=== PATIENT | female | born 1990 | race Caucasian/White ===

== ENCOUNTER 2018-09-04 02:11 | Day surgery (SDC) | payer OTHER ==
[2018-09-04] MEDS ORDERED: hydrOXYzine 25 MG/ML VIAL IM PRN (02:29)
[2018-09-04] MEDS ORDERED: diphenhydrAMINE 50 MG/ML VIAL IVP SCH (02:30)
[2018-09-04 02:39] VITALS: BMI 25.9
[2018-09-04] MEDS ORDERED: Ondansetron PF 4 MG/2 ML Vial IVP PRN (02:43)
--- NOTE | 2018-09-04 03:01 | PDOC.LDHP ---
Labor and Delivery H&P Allergies/Adverse Reactions: Allergies Allergy/AdvReac Type Severity Reaction Status Date / Time sertraline [From Zoloft] Allergy Rash Verified 09/04/18 02:29 - Plan -: PCP: OSMAN Yu HPI: This is a 27 yo at 30.1 wks presenting for panic attack. She states she was at a wedding today and then some RLQ pain she has been having for 3-4 days got worse. She states she saw PT yesterday for right sided rib pain. She states she has had N/V during the day today. She denies fevers, chills, or sweats. Pain does not radiate or migrate. Patient states this is like panic attacks she has had in the past but feels somewhat more severe today. She states it feels difficult to breath, denies coughing, feels heaviness in chest. She affirms movement, denies cxns, ROM, bleeding/discharge. Denies DUNHAM, visual changes, SOB, or swelling. History: OB hx: 2 miscarriage, 1 emergent c/s for cord around babies neck PMH: psychiatric issues PSH: neg Meds: PNV, citalopram Soc Hx: denies smoking, alcohol, drugs Fam Hx: denies downs, congenital defects REVIEW OF SYSTEMS: Gen: no fever, chills, or sweats Neuro: no numbness/tingling, no weakness, denies headache Eyes: no visual changes ENT: no hearing changes, no sore throat, no runny nose Resp: see hpi Card: denies chest pain, no palpitations GI: see hpi : no dysuria, no hematuria MSK: no myalgias, no joint pain/stiffness Heme: no easy bruising/bleeding Skin: no rash, no erythema PHYSICAL EXAMINATION: General: NAD, alert and oriented x3 HEENT: PERRLA, EOMI, normal sclera, oropharynx without erythema or exudate Neck: Supple. Full ROM. Heart/Cardiovascular System: RRR, Cap refill < 3 seconds, no rub, no murmur Lungs/Respiratory System: clear to auscultation bilaterally. No increased work of breathing. Room air. Abdomen/Gastro-Intestinal System: pain to deep palpation of RLQ, no fluid wave, no guarding/rebound, normal bowel sounds, Gravid Extremities: Warm extremities. No cyanosis or edema. Neuro: No gross deficits appreciated. CN 2-12 grossly intact Psychiatry: Awake, Alert and cooperative with exam Skin: No lesions, rashes, or ulcers Musculoskeletal: Full ROM A/P: 27 yo at 30.1 wks presenting for RLQ and panic attack # Panic Attack - Reassurance provided, guided breathing, patient considerably improved from arrival - Benadryl given - Hx of panic attacks per patient - Patient feels much better at time of re-check # RLQ pain, suspect round ligament pain - WBC 7.8, pain resolved at time of re-check, was able to drink a cup of water without N/V - Will d/c home with return precautions including fever, increased pain, or inablility to tolerate PO liquids Addendum - Attending - Attending Attestation Date/Time: 09/04/18 8094 I personally evaluated the patient and discussed the management with Dr. Beal I agree with the History, Examination, Assessment and Plan documented above with any addition or exceptions noted below.
[2018-09-04 03:02] LABS: Hemoglobin 11.2 g/dL (12.0-16.0); Mean Corpuscular Hemoglobin 30.9 pg (27.0-31.0); Mean Corpuscular Volume 88.1 fL (78.0-98.0); Mean Platelet Volume 7.9 fL (7.4-10.4); Platelet Count 173 thou/uL (130-400); RBC Distribution Width 11.5 % (11.5-14.5); Red Blood Cell (RBC) Count 3.62 mill/uL (4.20-5.40); White Blood Cell (WBC) Count 7.9 thou/uL (4.8-10.8)
[2018-09-04 03:16] LABS: Anion Gap 15 mmol/L (10-20); BUN (Urea Nitrogen) 6 mg/dL (7.0-18.7); Calc. Creatinine Clearance 140 mL/min (70-130); Calcium 9.2 mg/dL (7.8-10.44); Carbon Dioxide 20 mmol/L (22-29); Chloride 106 mmol/L (98-107); Estimated GFR-MDRD Greater than 90; Glucose 93 mg/dL (70-105); Potassium 3.6 mmol/L (3.5-5.1); Sodium 137 mmol/L (136-145)
== END 2018-09-04 04:00 | disposition home or self-care (01) ==
LOC: L&D/OP 02:11
PROVIDERS: ATTEND Obstetrics & Gynecology
DX: O99.343 Other mental disorders complicating pregnancy, third trimester (principal); F41.0 Panic disorder [episodic paroxysmal anxiety]; O99.89 Other specified diseases and conditions complicating pregnancy, childbirth and the puerperium; R10.31 Right lower quadrant pain; O21.2 Late vomiting of pregnancy; Z3A.30 30 weeks gestation of pregnancy; Z79.899 Other long term (current) drug therapy; Z88.8 Allergy status to other drugs, medicaments and biological substances
CPT/HCPCS: 36415; 80048; 85027; 96374; 99283; J1200; J2405